=== PATIENT | male | born 1940 | race Caucasian/White ===

== ENCOUNTER 2023-05-20 08:42 | Outpatient (CLI) | payer MEDICARE, OTHER | END 2023-05-20 23:59 | disposition critical access hospital (66) | LOC: EMS 08:42 | DX: S01.81XA Laceration without foreign body of other part of head, initial encounter (principal); W01.0XXA Fall on same level from slipping, tripping and stumbling without subsequent striking against object, initial encounter; Y93.01 Activity, walking, marching and hiking; Y92.538 Other ambulatory health services establishments as the place of occurrence of the external cause | CPT/HCPCS: A0425; A0429 ==

== ENCOUNTER 2023-05-20 09:03 | Emergency (ER) | payer MEDICARE, OTHER ==
[2023-05-20] MEDS ORDERED: LIDOCAINE-EPINEPH-TETRACAINE 3 ML SYRINGE TOP STA (09:11)
--- NOTE | 2023-05-20 09:12 | ED Physician Documentation ---
PD HPI HEAD INJURY - Stated complaint Stated Complaint: GLF/FACE LAC - History obtained from History obtained from: Patient, EMS - Additional information Additional information: Patient is an 83-year-old male presenting for evaluation of a head injury that occurred just prior to arrival. Patient was walking to get into his dialysis chair when his shoes were getting stuck to the floor and he tripped over his feet falling forward. He did hit his head. There was no LOC. He is on Xarelto. This was his usual dialysis appointment and he was last dialyzed on Saturday. Patient otherwise reports feeling well. He is unsure of his last teta nus. He is visiting the area from [place]. Per EMS, family is able to pick him up when his work-up is completed and dialysis will be able to accommodate him later today for his regular appointment. Review of Systems Constitutional: denies: Fever Cardiac: denies: Chest pain / pressure Respiratory: denies: Dyspnea GI: denies: Abdominal Pain Neurologic: reports: Head injury PD PAST MEDICAL HISTORY - Present Medications Home Medications: Ambulatory Orders Medication Instructions Recorded Confirmed ALPRAZolam [Alprazolam] 0.5 mg PO DAILY 05/20/23 05/20/23 Apixaban [Eliquis] 2.5 mg PO DAILY 05/20/23 05/20/23 Atorvastatin Calcium [Lipitor] 80 mg PO DAILY 05/20/23 05/20/23 Cholecalciferol (Vitamin D3) 50 mcg PO DAILY 05/20/23 05/20/23 [Vitamin D3] Folic Acid/Vit B Complex and C 0.8 mg PO DAILY 05/20/23 05/20/23 [Leeann-Cesar Tablet] Gabapentin [Neurontin] 100 mg PO TID 05/20/23 05/20/23 Magnesium Oxide [Magnesium] 500 mg PO DAILY 05/20/23 05/20/23 Metoprolol Succinate [Toprol Xl] 50 mg PO BID 05/20/23 05/20/23 Midodrine HCl 10 mg PO TID 05/20/23 05/20/23 Sevelamer [Renagel] 800 mg PO DAILY 05/20/23 05/20/23 gemfibroziL [Lopid] 600 mg PO BID 05/20/23 05/20/23 - Allergies Allergies/Adverse Reactions: Allergies Allergy/AdvReac Type Severity Reaction Status Date / Time No Known Drug Allergies Allergy Verified 05/20/23 09:12 PD ED PE NORMAL - General General: Alert and oriented X 3, No acute distress, Well developed/nourished - HEENT HEENT: PERRL, EOMI, Moist mucous membranes, Pharynx benign, Other (2 cm laceration above right eyebrow) - Neck Neck: Supple, no meningeal sign, No bony TTP, C-Spine cleared by NEXUS criteria - Cardiac Cardiac: RRR, No murmur, Strong equal pulses, Other (Dialysis catheter to right chest wall) - Respiratory Respiratory: No respiratory distress, Clear bilaterally - Abdomen Abdomen: Soft, Non tender - Derm Derm: Warm and dry - Extremities Extremities: No deformity - Neuro Neuro: Alert and oriented X 3, 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, No motor deficit, No sensory deficit, Normal speech Eye Opening: Spontaneous Motor: Obeys Commands Verbal: Oriented GCS Score: 15 Results - Vitals Vitals: Vital Signs - 24 hr 05/20/23 05/20/23 09:05 11:28 Temperature 36.5 C Heart Rate 67 78 Respiratory 14 14 Rate Blood Pressure 106/77 106/72 O2 Saturation 96 100 Oxygen O2 Source Room air Procedures - Laceration (location) Right eyebrow Length in cm: 3 Wound type: Irregular, Clean Anesthesia: LET, Lidocaine 1% Wound preparation: Hibiclens, Irrigated copiously NS Skin layer closure: Size #-0 - enter number (5), Sutures - enter # (6) Other: Patient tolerated well, No complications, Neurovascular intact, Tetanus booster given PD Medical Decision Making - ED course Complexity details: reviewed results, re-evaluated patient, d/w patient ED course: Patient is an 83-year-old male presenting for evaluation after a fall and head injury. He has a laceration to the forehead. Fall appears to be mechanical as patient reports he tripped walking to his dialysis chair. He denies other associated symptoms. He is anticoagulated. His neuro exam is normal. CT head was obtained which I reviewed and see no signs of any intracranial hemorrhage. Forehead laceration was sutured. Patient is without any further complaints. Dialysis is able to accommodate him for his usual session today. Patient advised on wound care instructions, need for suture removal as well as concerning symptoms to return for. Departure - Departure Disposition: 01 Home, Self Care Clinical Impression: Head injury, Forehead laceration, Anticoagulant long-term use, Dialysis patient Condition: Stable Instructions: ED Head Injury Closed, ED Laceration Facial Sutr Tape Comments: You were evaluated after head injury. Your CT scan does not show any signs of any internal injuries to your brain. You do have a laceration to your forehead that was closed with 6 stitches. These should be kept in place for 5 to 7 days. Please return to an emergency department, walk-in clinic or see your primary care to have the sutures removed by 05/26/23. Please go to your dialysis appointment today. You were given a tetanus booster today. Return to the emergency department with any new or worsening symptoms. Forms: PCP List Discharge Date/Time: 05/20/23 11:58
[2023-05-20] MEDS ORDERED: TETANUS/DIPHTHERIA/PERTUSSIS 0.5 ML SYRINGE IM ONE (09:13)
--- NOTE | 2023-05-20 10:19 | CT Report ---
PROCEDURE: HEAD WO INDICATIONS: head injury/xarelto TECHNIQUE: Noncontrast 4.5 mm thick angled axial sections acquired from the foramen magnum to the vertex. For r adiation dose reduction, the following was used: automated exposure control, adjustment of mA and/or kV according to patient size. COMPARISON: None. FINDINGS: Image quality: Excellent. CSF spaces: Basal cisterns are patent. No extra-axial fluid collections. Ventricles are normal in size and shape. Brain: No midline shift. No intracranial masses or hemorrhage. Ratliff-white matter interface is norm al. Age related global volume loss. Areas of hypoattenuation within the deep and periventricular whi te matter, nonspecific and likely representing chronic microvascular ischemic change. Atherosclerotic vascular calcifications. Skull and face: Calvarium and visualized facial bones are intact, without suspicious lesions. Right frontal and periorbital laceration. Bilateral lens replacements. The orbits are otherwise normal in a ppearance. Sinuses: Visualized sinuses and mastoids are clear. IMPRESSION: 1.No acute large territorial infarct, intracranial hemorrhage or mass effect. 2.Right frontal and periorbital laceration. 3.Age-related global volume loss and chronic microvascular ischemic change. Reviewed by: Omar Vu MD on 05/20/2023 10:18 AM PDT Approved by: Omar Vu MD on 05/20/2023 10:18 AM PDT Station ID: [id number]
[2023-05-20 11:29] VITALS: BP 106/72
== END 2023-05-20 11:58 | disposition home or self-care (01) ==
LOC: ED 09:03
DX: S09.90XA Unspecified injury of head, initial encounter (principal); S01.81XA Laceration without foreign body of other part of head, initial encounter; Z79.01 Long term (current) use of anticoagulants; Z99.2 Dependence on renal dialysis
CPT/HCPCS: 12013; 36415; 90471; 99283; 99284